=== PATIENT | female | born 1955 | race Caucasian/White ===

== ENCOUNTER → 2017-02-20 | Outpatient (CLI) | payer BC ==
[~2017-02-20] VITALS: Ht 167.6 cm; Wt 122.5 kg
[~2017-02-20] MED LIST: ASPIR 8181 M1 PO; BIOTIN; BIOTIN800 MCG PO; CARDIZEM CD240 M1 PO; CEFTIN 250 MG250 MG PO; CENTRUM SILVER1 EAC4 PO; ELIQUIS5 MG PO; FLECAINIDE ACET50 M1 PO; FLUOXETINE DR90 MG; IRON SUPPLEMEN325 MG PO; IRON325 PO; KLOR-CON 1010 MEQ PO; LASIX 20 MG TAB20 MG PO; LEVOTHYROXINE PO; LISINOPRIL PO; LISINOPRIL5 MG PO; METOPROLOL SUCC50 MG PO; PANTOPRAZOLE SO40 M1 PO; PERCOCET 5-3251 EACH PO; POTASSIUM20 PO; PREDNISONE 5 MG5 M1 PO; PROPAFENONE 15150 MG PO; PROTONIX40 MG PO; PROZAC20 MG PO; TOPROL XL25 MG PO; TYLENOL325 MG PO; VICTOZA0.6 MG/0.1; VITAMIN B-12500 MCG PO; VITAMIN C500 M1 PO; VITAMIN D; VITAMIN D1000 UNI1 PO; ZOFRAN 4 MG ORAL4 MG PO
--- NOTE | ~2017-02-20 | EKG ---
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: Yvonne KRAUSE : 1955 Requested By: Ortiz Santamaria Order Number: [id number] MD: Ortiz Santamaria Measurements Intervals [place] Rate: 45 P: 36 [place]: 184 QRS: 61 QRSD: 105 T: 150 QT: 522 QTc: 452 Interpretive Statements Sinus bradycardia Atrial premature complex Consider left atrial enlargement Abnormal T, consider ischemia, lateral leads No previous ECG available for comparison Electronically Signed On 02-22-2017 22:07:29 CDT by Ortiz Santamaria [email or web address] <ELECTRONICALLY SIGNED> By: Ortiz Santamaria MD 02/22/17 2207 1110 111 Ortiz Santamaria MD /EPI
[2017-02-20 08:25] VITALS: BP 176/81
[2017-02-20 08:47] LABS: HEMOGLOBIN 13.9 gm/dL (12.0-15.0); MCH 29.6 pg (26.0-34.0); MCHC 33.1 g/dL (28.0-37.0); MCV 89.3 fL (80.0-100.0); RBC 4.71 mil/uL (4.20-5.00); RDW 13.9 % (10.5-14.5); WBC 7.3 thou/uL (4.0-11.0)
[2017-02-20 08:57] LABS: CALCIUM 8.8 mg/dL (8.5-10.1); CREATININE 0.8 mg/dL (0.6-1.0); POTASSIUM 3.3 mmol/L (3.5-5.1)
[2017-02-20 09:01] LABS: APTT 25.7 Seconds (24.5-32.8); INR 1.1; PROTIME 11.2 Seconds (9.3-11.4)
== END | disposition home or self-care (01) ==
LOC: CATH 07:57
PROVIDERS: Internal Medicine Cardiovascular Disease
DX: I48.91 Unspecified atrial fibrillation (principal); E03.9 Hypothyroidism, unspecified; I10 Essential (primary) hypertension; K21.9 Gastro-esophageal reflux disease without esophagitis; Z90.49 Acquired absence of other specified parts of digestive tract; Z90.710 Acquired absence of both cervix and uterus; Z98.84 Bariatric surgery status; Z98.890 Other specified postprocedural states; Z87.891 Personal history of nicotine dependence; Z79.899 Other long term (current) drug therapy
CPT/HCPCS: 62110; 62900

== ENCOUNTER → 2017-11-09 | Outpatient (CLI) | payer BC ==
[~2017-11-09] VITALS: Ht 167.6 cm; Wt 117.5 kg
[~2017-11-09] MED LIST changes: +AUGMENTIN 875-1 EACH PO; +FELDENE10 MG PO
--- NOTE | ~2017-11-09 | P ---
[facility] [place] [address] PROCEDURE REPORT Name: ANTHONY DUTTON Room #: REG [facility]#: [id number] Admission: 11/09/17 Attend Phys: Ortiz Santamaria MD Discharge: Date of : 55 Report #: [id number] THIS REPORT FOR: //name// CC: Paulo Santamaria PREOPERATIVE DIAGNOSIS: Atrial fibrillation. POSTOPERATIVE DIAGNOSIS: Atrial fibrillation. DESCRIPTION OF PROCEDURE: The patient underwent informed consent. She was then sedated by the Anesthesiology service and then underwent a successful 200 joule synchronized cardioversion with voodoo of sinus rhythm. CONCLUSIONS: Successful DC cardioversion with voodoo of sinus rhythm. <ELECTRONICALLY SIGNED> By: Ortiz Santamaria MD 11/26/17 1141 1123 1222 Ortiz Santamaria MD /nt
--- NOTE | ~2017-11-09 | EKG ---
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 : 1955 Requested By: Ortiz Santamaria Order Number: [id number] MD: Emilio Longoria Measurements Intervals [place] Rate: 65 P: 14 [place]: 168 QRS: 0 QRSD: 97 T: 66 QT: 437 QTc: 455 Interpretive Statements Sinus rhythm Borderline T wave abnormalities Compared to ECG 02/20/2017 11:10:02 Sinus bradycardia no longer present Atrial premature complex(es) no longer present T-wave abnormality is less pronounced Electronically Signed On 11-10-2017 9:40:47 CDT by Emilio Longoria [email or web address] <ELECTRONICALLY SIGNED> By: Emilio Longoria MD, [facility] 11/10/17 0940 1318 1318 Emilio Longoria MD, [facility] /EPI
[2017-11-09 11:30] VITALS: BP 153/88
[2017-11-09 11:54] LABS: HEMATOCRIT 45.4 % (37.0-47.0); HEMOGLOBIN 15.2 gm/dL (12.0-15.0); MCH 29.5 pg (26.0-34.0); MCHC 33.4 g/dL (28.0-37.0); MCV 88.2 fL (80.0-100.0); RBC 5.15 mil/uL (4.20-5.00); RDW 14.8 % (10.5-14.5); WBC 7.5 thou/uL (4.0-11.0)
[2017-11-09 12:02] LABS: CALCIUM 9.2 mg/dL (8.5-10.1); CREATININE 0.7 mg/dL (0.6-1.0)
[2017-11-09 12:08] LABS: ALBUMIN 3.9 g/dL (3.4-5.0); PROTIME 10.6 Seconds (9.3-11.4); TOTAL BILIRUBIN 1.1 mg/dL (<0.1-1.0); TOTAL PROTEIN 6.5 g/dL (6.4-8.2)
== END | disposition home or self-care (01) ==
LOC: CATH 10:00
PROVIDERS: Internal Medicine Cardiovascular Disease
DX: I48.91 Unspecified atrial fibrillation (principal); E03.9 Hypothyroidism, unspecified; I10 Essential (primary) hypertension; E66.09 Other obesity due to excess calories; Z87.891 Personal history of nicotine dependence; Z98.890 Other specified postprocedural states; Z90.49 Acquired absence of other specified parts of digestive tract; Z79.899 Other long term (current) drug therapy; Z90.710 Acquired absence of both cervix and uterus; Z79.01 Long term (current) use of anticoagulants
CPT/HCPCS: 62110; 62900

== ENCOUNTER → 2017-11-30 | Outpatient (CLI) | payer BC ==
[2017-11-30 07:39] LABS: HEMATOCRIT 44.5 % (37.0-47.0); HEMOGLOBIN 14.8 gm/dL (12.0-15.0); MCH 29.4 pg (26.0-34.0); MCHC 33.3 g/dL (28.0-37.0); MCV 88.5 fL (80.0-100.0); RBC 5.03 mil/uL (4.20-5.00); RDW 14.6 % (10.5-14.5); WBC 5.1 thou/uL (4.0-11.0)
[2017-11-30 07:49] LABS: ALBUMIN 3.8 g/dL (3.4-5.0); CALCIUM 9.2 mg/dL (8.5-10.1); CREATININE 0.8 mg/dL (0.6-1.0); POTASSIUM 3.4 mmol/L (3.5-5.1); TOTAL PROTEIN 6.3 g/dL (6.4-8.2)
== END ==
LOC: CAT 06:15
PROVIDERS: Internal Medicine Cardiovascular Disease
DX: M47.894 Other spondylosis, thoracic region (principal); K44.9 Diaphragmatic hernia without obstruction or gangrene; Z90.49 Acquired absence of other specified parts of digestive tract

== ENCOUNTER → 2017-12-31 | Outpatient (CLI) | payer BC ==
[~2017-12-31] VITALS: Ht 170.2 cm; Wt 112.9 kg
--- NOTE | ~2017-12-31 | EKG ---
[address] [address] ELECTROCARDIOGRAM REPORT Name: ANTHONY DUTTON Room #: REG [facility]#: [id number] Admission: 12/31/17 Attend Phys: Ortiz Santamaria MD Discharge: Date of : 55 Report #: [id number] THIS REPORT FOR: //name// [facility] Test Date: 2017-12-31 Test Time: 13:25:03 Pat Name: ANTHONY DUTTON Department: Room: Gender: F Ribbon Tier: LISBET : 1955 Requested By: Ortiz Santamaria Order Number: [id number] MD: Ortiz Santamaria Measurements Intervals [place] Rate: 67 P: 15 [place]: 160 QRS: -14 QRSD: 104 T: 87 QT: 435 QTc: 460 Interpretive Statements Sinus rhythm Abnormal R-wave progression, late transition Probable left ventricular hypertrophy Compared to ECG 12/10/2017 14:57:16 T-wave abnormality no longer present Electronically Signed On 12-31-2017 16:18:20 CDT by Ortiz Santamaria [email or web address] <ELECTRONICALLY SIGNED> By: Ortiz Santamaria MD 12/31/17 1618 1325 1325 Ortiz Santamaria MD /EPI
--- NOTE | ~2017-12-31 | P ---
[facility] [place] [address] PROCEDURE REPORT Name: ANTHONY DUTTON Room #: REG [facility]#: [id number] Admission: 12/31/17 Attend Phys: Ortiz Santamaria MD Discharge: Date of : 55 Report #: [id number] THIS REPORT FOR: //name// CC: Paulo Santamaria PROCEDURE: Cardioversion. PREOPERATIVE DIAGNOSIS: Atrial fibrillation. POSTOPERATIVE DIAGNOSIS: Atrial fibrillation. DESCRIPTION OF PROCEDURE: The patient underwent informed consent. The patient was then sedated by the Anesthesiology Service. Once sedated, she underwent a synchronized 200-joule cardioversion with druze of sinus rhythm. There were no procedural complications. CONCLUSIONS: Successful DC cardioversion with druze of sinus rhythm. By: 1245 0019 Ortiz Santamaria MD /nt
[2017-12-31 10:34] LABS: HEMATOCRIT 46.4 % (37.0-47.0); HEMOGLOBIN 15.5 gm/dL (12.0-15.0); MCH 29.5 pg (26.0-34.0); MCHC 33.4 g/dL (28.0-37.0); MCV 88.2 fL (80.0-100.0); RBC 5.26 mil/uL (4.20-5.00); RDW 14.8 % (10.5-14.5); WBC 5.8 thou/uL (4.0-11.0)
[2017-12-31 10:42] LABS: CALCIUM 9.2 mg/dL (8.5-10.1); CREATININE 0.7 mg/dL (0.6-1.0); POTASSIUM 3.7 mmol/L (3.5-5.1)
[2017-12-31 10:45] VITALS: BP 132/97
[2017-12-31 10:48] LABS: ALBUMIN 4.1 g/dL (3.4-5.0); TOTAL PROTEIN 6.9 g/dL (6.4-8.2)
[2017-12-31 11:03] LABS: APTT 28.1 Seconds (24.5-32.8); PROTIME 10.7 Seconds (9.3-11.4)
== END | disposition home or self-care (01) ==
LOC: CV 10:01
PROVIDERS: Internal Medicine Cardiovascular Disease
DX: I48.91 Unspecified atrial fibrillation (principal); I10 Essential (primary) hypertension; E03.9 Hypothyroidism, unspecified; Z90.710 Acquired absence of both cervix and uterus; Z90.49 Acquired absence of other specified parts of digestive tract; Z98.890 Other specified postprocedural states; Z79.899 Other long term (current) drug therapy; Z79.01 Long term (current) use of anticoagulants; Z98.84 Bariatric surgery status
CPT/HCPCS: 62110; 62900

== ENCOUNTER → 2018-07-14 | Outpatient (CLI) | payer BC ==
[~2018-07-14] VITALS: Ht 170.2 cm; Wt 114.8 kg
--- NOTE | ~2018-07-14 | P ---
[facility] [place] [address] PROCEDURE REPORT Name: ANTHONY DUTTON Room #: REG [facility]#: [id number] Admission: 07/14/18 Attend Phys: Ortiz Santamaria MD Discharge: Date of : 55 Report #: [id number] THIS REPORT FOR: //name// CC: Paulo Santamaria PROCEDURE: Cardioversion. PREOPERATIVE DIAGNOSIS: Atrial fibrillation. POSTOPERATIVE DIAGNOSIS: Atrial fibrillation. DESCRIPTION OF PROCEDURE: The patient underwent informed consent. She was then sedated by the Anesthesiology Service. Once sedated, she underwent a successful 200 joules synchronized cardioversion with adventism of sinus rhythm. There were no procedural complications. CONCLUSIONS: Successful DC cardioversion with adventism of sinus rhythm. <ELECTRONICALLY SIGNED> By: Ortiz Santamaria MD 07/15/18 0831 1257 1342 Ortiz Santamaria MD /nt
[2018-07-14 07:11] VITALS: BP 120/99
[2018-07-14 07:39] LABS: ABSOLUTE NEUTROPHILS 2.6 thou/uL (1.4-8.2); BASOPHILS 1.1 % (0.0-2.0); HEMATOCRIT 45.2 % (37.0-47.0); HEMOGLOBIN 14.6 gm/dL (12.0-15.0); LYMPHOCYTES 31.1 % (24.0-44.0); MCH 28.4 pg (26.0-34.0); MCHC 32.4 g/dL (28.0-37.0); MCV 87.6 fL (80.0-100.0); MONOCYTES 8.7 % (1.0-8.0); PLATELET COUNT 214 thou/uL (150-400); POLYS 57.1 % (36.0-66.0); RBC 5.15 mil/uL (4.20-5.00); RDW 14.3 % (10.5-14.5); WBC 4.6 thou/uL (4.0-11.0)
[2018-07-14 07:45] LABS: CALCIUM 9.2 mg/dL (8.5-10.1); CREATININE 0.7 mg/dL (0.6-1.0); POTASSIUM 3.4 mmol/L (3.5-5.1)
[2018-07-14 07:51] LABS: ALBUMIN 3.7 g/dL (3.4-5.0); TOTAL BILIRUBIN 0.9 mg/dL (<0.1-1.0); TOTAL PROTEIN 6.6 g/dL (6.4-8.2)
[2018-07-14 08:21] LABS: APTT 30.6 Seconds (24.5-32.8); PROTIME 10.7 Seconds (9.3-11.4)
== END | disposition home or self-care (01) ==
LOC: CATH 06:20
PROVIDERS: Internal Medicine Cardiovascular Disease
DX: I48.91 Unspecified atrial fibrillation (principal); J01.90 Acute sinusitis, unspecified; E03.9 Hypothyroidism, unspecified; I10 Essential (primary) hypertension; E66.9 Obesity, unspecified; Z79.899 Other long term (current) drug therapy; Z90.710 Acquired absence of both cervix and uterus; Z98.84 Bariatric surgery status; Z90.49 Acquired absence of other specified parts of digestive tract; Z90.89 Acquired absence of other organs; Z98.890 Other specified postprocedural states; Z87.891 Personal history of nicotine dependence

== ENCOUNTER 2018-11-05 06:49 | Observation (INO) | payer BC ==
[~2018-11-05] VITALS: Ht 170.2 cm; Wt 120.5 kg
[2018-11-05] VITALS (14 sets, daily range): BP systolic 126–176; BP diastolic 64–91
--- NOTE | ~2018-11-05 | P ---
[facility] [place] [address] PROCEDURE REPORT Name: ANTHONY DUTTON Room #: 213-P [facility]#: [id number] Admission: 11/05/18 ������������������ Attend Phys: Ortiz Santamaria MD Discharge: ������������������ Date of : 55 Report #: [id number] THIS REPORT FOR: //name// CC: Paulo Santamaria DATE OF SERVICE: 11/05/2018 PREOPERATIVE DIAGNOSIS: Atrial fibrillation. POSTOPERATIVE DIAGNOSIS: Atrial fibrillation. HISTORY: The patient is a 63-year-old female with a history of atrial fibrillation status post prior ablation with clinical recurrence here for a repeat ablation. PROCEDURES PERFORMED: 1. AFib ablation, CPT code 28764. 2. 3D mapping, CPT code 34879. 3. Intracardiac echo, CPT code 58707. 4. Focal ablation of the left atrial roof, CPT code 39134. 5. Secondary pathway ablation for atrial flutter, CPT code 00386. ANESTHESIA: The patient underwent general anesthesia with no anesthesia related complications. DESCRIPTION OF PROCEDURE: The patient was brought to the EP laboratory in fasting and sedated state, prepped and draped in a sterile fashion and I injected lidocaine to the bilateral groins and obtained access to the bilateral femoral veins placing a two 8-Salvadorean short sheaths in the right femoral vein and a 7 and 9-Salvadorean short sheath in the left femoral vein using the modified Seldinger technique. Next, a Decapolar catheter was placed in the coronary sinus and it remained in position throughout the procedure. An ice catheter was placed in the right atrium and I created a detailed 3D geometry of the left atrium with specific emphasis of the left atrial appendage, the two left and two right pulmonary veins. This was merged with a cardiac CT scan. Next, the patient was systemically heparinized and two transseptals were performed using SL1 sheaths and the [place] needle and both sheaths were placed in the left atrium. Next, a Lasso catheter was utilized to create 3D geometry of the left atrium and a SmartTouch ThermoCool was placed in the left atrium as well for ablation. At baseline, the patient was in sinus rhythm with a sinus cycle length of 1200 milliseconds, ID interval 190 milliseconds, QRS duration 95 milliseconds, and a QT interval 465 milliseconds. Next, the voltage map demonstrated that the left superior and right superior pulmonary veins were isolated. There was slight reconnection of the left inferior pulmonary vein and slight reconnection of the right inferior pulmonary vein. Therefore, I started [facility] [address] [place] [address] PROCEDURE REPORT Name: ANTHONY DUTTON Room #: 213-P [facility]#: [id number] Admission: 11/05/18 ������������������ Attend Phys: Ortiz Santamaria MD Discharge: ������������������ Date of : 55 Report #: [id number] ablating and I performed a wide circumferential ablation of the left veins. This was performed at 35 brand. This resulted in re-isolation of the left inferior pulmonary vein and widening of the area of isolation of the left-sided vessels. Next, I turned my attention to the right inferior pulmonary vein and there was some reconnection at the inferior aspect of the vein at around 6 o'clock. I performed ablation from 3 o'clock to about 9 o'clock and then there was isolation of this vein as well. Next, I created a repeat voltage map and there was evidence of isolation of all the veins. There were significant fractionated atrial signals along the posterior wall and along the roof region. Therefore, I created a roofline along the posterior aspect of the left atrium. A repeat voltage map demonstrated that we had essentially isolated this area of the roof in much of the posterior segment of the left atrium. I repeated a voltage map and essentially the majority of the left atrium was now isolated except for a small strip along the posterior wall of the posterior atrium. Next, I pulled my ablation catheter and sheaths to the right atrium and I performed ablation along the cavotricuspid isthmus at 6 o'clock. Pre-ablation, the transisthmus conduction time was 35 milliseconds. Using a SignicastTouch ThermoCool ablation, two lines were created and there was still evidence of conduction across the line, I did exchange for a ramp sheath and performed a more septal line. Post-ablation, transisthmus conduction time was now 80 milliseconds. As such, using intracardiac ultrasound, I verified that there was no pericardial effusion and as such, the procedure was concluded. The patient remained in sinus rhythm with a sinus cycle length of 799 milliseconds, ID interval 155 milliseconds, QRS duration 93 milliseconds, QT interval 495 milliseconds. As such, the patient received systemic protamine and once the ACT was within acceptable range, all sheaths were pulled and hemostasis was obtained. The patient awoke neurologically and hemodynamically intact with no complications and no significant bleeding. CONCLUSIONS: 1. Successful AFib ablation with re-isolation of the right inferior pulmonary vein and the left inferior pulmonary vein. 2. Wide circumferential ablation of the left-sided veins. 3. Creation of a left atrial roofline. 4. Successful ablation of the cavotricuspid isthmus. ��������������������������������������������� ���������������������������������������� By: ��������������������������������������������� 1211 0327 Ortiz Santamaria MD /nt
[2018-11-05 07:34] LABS: ABSOLUTE NEUTROPHILS 3.1 thou/uL (1.4-8.2); BASOPHILS 1.4 % (0.0-2.0); EOSINOPHILS 2.6 % (0.0-3.0); HEMATOCRIT 42.9 % (37.0-47.0); HEMOGLOBIN 14.3 gm/dL (12.0-15.0); LYMPHOCYTES 24.5 % (24.0-44.0); MCHC 33.3 g/dL (28.0-37.0); MONOCYTES 7.6 % (1.0-8.0); PLATELET COUNT 220 thou/uL (150-400); POLYS 63.9 % (36.0-66.0); RBC 4.92 mil/uL (4.20-5.00); RDW 15.3 % (10.5-14.5); WBC 4.8 thou/uL (4.0-11.0)
[2018-11-05 07:37] LABS: CALCIUM 9.3 mg/dL (8.5-10.1); CREATININE 0.6 mg/dL (0.6-1.0); POTASSIUM 3.8 mmol/L (3.5-5.1)
[2018-11-05 07:43] LABS: ALBUMIN 4.1 g/dL (3.4-5.0); TOTAL BILIRUBIN 1.3 mg/dL (<0.1-1.0); TOTAL PROTEIN 6.8 g/dL (6.4-8.2)
[2018-11-05 07:45] LABS: APTT 27.4 Seconds (24.5-32.8); PROTIME 10.7 Seconds (9.3-11.4)
--- NOTE | 2018-11-05 14:55 | NUR ---
ASSUMED CARE AT 1400, SHIFT ASSESSMENT AND ADMISSION DONE. VSS. BILATERAL GROIN SITES ARE SOFT ON PALPATION, NO BLEEDING NOTED AT THE STIES. PATIENT DROWSY, A&O*4. REPORTED PAIN TO RIGHT HAND AND LOWER BACK, PRN PAIN MED GIVEN. SALDANA IN PLACE, PRODUCING LIGHT YELLOW URINE. VS MONITORED PER PROTOCOL. WILL CONTINUE TO ASSESS AND ASSIST WITH ADLs NEEDED.
--- NOTE | 2018-11-05 17:35 | NUR ---
VS HAVE BEEN OBTANIED Q15 MIN FOR FIRST HOUR AND Q1H FOR NEXT 1 HOUR, VSS. BOTH GROIN SITES DOES NOT SHOW ANY SIGNS OF HEMATOMA, SWELLING. SALDANA IN PLACE. RESTING IN BED. WILL CONTINUE TO ASSESS AND ASSIST WITH ADLs NEEDED.
--- NOTE | 2018-11-05 18:46 | NUR ---
AT 1815 SITES WERE CHECKED, DID NOT SEE ANY HEMATOMA, ON PALPATION SITE IS SOFT. SALDANA WAS DISCONTINUED, VSS. PATIENT WAS ABLE TO SIT AT THE EDGE OF THE BED AND THEN TRANSFER TO THE CHAIR. DENIES ANY PAIN, WILL CONTINUE TO ASSESS AND ASSIST WITH ADLs NEEDED.
[2018-11-06 00:25] VITALS: BP 126/56
--- NOTE | 2018-11-06 05:48 | NUR ---
ASSUMED PT CARE AT 1900. PT OFF BEDREST, A/OX4, FAMILY AT BEDSIDE. VITAL SIGNS STABLE, ASSESSMENT CHARTED. GROIN SITES CLEAN, DRY, INTACT. NO HEMATOMAS. NO COMPLAINTS OF CHEST PAIN. BACK PAIN ADEQAUTELY MANAGED WITH PAIN MEDICATION. PT ABLE TO AMBULATE TO THE BATHROOM STANDBY ASSIST TO INDEPENDENT. PT RESTED WELL THROUGH THE NIGHT. PROGRESSING TOWARD PLAN OF CARE. WILL CONTINUE TO MONITOR.
[2018-11-06 05:52] VITALS: BP 111/56
[2018-11-06 08:00] VITALS: BP 139/57
[2018-11-06 10:45] VITALS: BP 139/57
--- NOTE | 2018-11-06 12:40 | NUR ---
PATIENT ALERT AND ORIENTED X4, PAIN CONTROLLED WITH MEDICATION. 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 ON ROOM AIR. TOLERATING DIET. UP INDEPENDENTLY. DISCHARGE INSTRUCTIONS AND FOLLOW UP APPOINTMENT DISCUSSED. PATIENT VERBALIZED UNDERSTANDING. IV REMOVED. NO SIGNS OF ACUTE DISTRESS NOTED AT THIS TIME. PATIENT TRANSFERRED TO CAR BY STAFF.
[2018-11-06 12:43] VITALS: BP 139/57
== END 2018-11-06 12:44 | disposition home or self-care (01) ==
LOC: CATH 06:49 → 2N 13:35 → CATH 15:00 → 2N 11-06 12:44
PROVIDERS: ADMIT Internal Medicine Cardiovascular Disease
DX: I48.91 Unspecified atrial fibrillation (principal); I10 Essential (primary) hypertension; I49.5 Sick sinus syndrome; Z79.899 Other long term (current) drug therapy
CPT/HCPCS: 62110; 62900; 65020; 70005

== ENCOUNTER → 2019-06-09 | Outpatient (CLI) | payer BC ==
[~2019-06-09] VITALS: Ht 170.2 cm; Wt 117.9 kg
[~2019-06-09] MED LIST changes: +LISINOPRIL2.5 MG PO; +OXYBUTYNIN 5 MG5 M2 PO; +PREDNISONE 1 MG1 M1 PO
[2019-06-09 11:09] VITALS: BP 161/99
[2019-06-09 11:46] LABS: BASOPHILS 0.8 % (0.0-2.0); EOSINOPHILS 0.4 % (0.0-3.0); HEMATOCRIT 42.3 % (37.0-47.0); HEMOGLOBIN 14.1 gm/dL (12.0-15.0); LYMPHOCYTES 13.2 % (24.0-44.0); MCH 29.7 pg (26.0-34.0); MCHC 33.3 g/dL (28.0-37.0); MCV 89.1 fL (80.0-100.0); MONOCYTES 3.6 % (1.0-8.0); PLATELET COUNT 226 thou/uL (150-400); RBC 4.74 mil/uL (4.20-5.00); RDW 14.7 % (10.5-14.5)
[2019-06-09 11:56] LABS: CALCIUM 8.9 mg/dL (8.5-10.1); CREATININE 0.7 mg/dL (0.6-1.0)
[2019-06-09 11:58] LABS: APTT 29.5 Seconds (24.5-32.8); PROTIME 10.9 Seconds (9.3-11.4)
[2019-06-09 12:01] LABS: ALBUMIN 3.8 g/dL (3.4-5.0); TOTAL PROTEIN 6.4 g/dL (6.4-8.2)
--- NOTE | 2019-06-16 12:27 | P ---
[facility] [place] [address] PROCEDURE REPORT Name: ANTHONY DUTTON Room #: REG [facility]#: [id number] Admission: 06/09/19 Attend Phys: Ortiz Santamaria MD Discharge: Date of : 55 Report #: [id number] THIS REPORT FOR: //name// CC: Paulo Santamaria PREOPERATIVE DIAGNOSIS: Atrial fibrillation. POSTOPERATIVE DIAGNOSIS: Atrial fibrillation. DESCRIPTION OF PROCEDURE: The patient underwent informed consent. She was prepped in a standard fashion. She was sedated by the Anesthesiology service. Once sedated, she underwent a 200 joule synchronized cardioversion with baptism of sinus rhythm. There were no procedure related complications. CONCLUSIONS: Successful DC cardioversion with baptism of sinus rhythm. <ELECTRONICALLY SIGNED> By: Ortiz Santamaria MD 06/16/19 1227 0747 1833 Ortiz Santamaria MD /nt
== END | disposition home or self-care (01) ==
LOC: CATH 10:15
PROVIDERS: Internal Medicine Cardiovascular Disease
DX: I48.91 Unspecified atrial fibrillation (principal); I10 Essential (primary) hypertension; E03.9 Hypothyroidism, unspecified; Z90.710 Acquired absence of both cervix and uterus; Z90.49 Acquired absence of other specified parts of digestive tract; Z98.84 Bariatric surgery status; Z98.890 Other specified postprocedural states; Z79.01 Long term (current) use of anticoagulants; Z79.899 Other long term (current) drug therapy; Z87.891 Personal history of nicotine dependence
CPT/HCPCS: 62110; 62900

== ENCOUNTER → 2019-10-12 | Outpatient (CLI) | payer BC | LOC: RAD 16:08 | DX: R06.00 Dyspnea, unspecified (principal); R06.02 Shortness of breath ==

== ENCOUNTER → 2019-10-19 | Outpatient (CLI) | payer BC ==
[~2019-10-19] VITALS: Ht 170.2 cm; Wt 121.6 kg
[~2019-10-19] MED LIST changes: +PACERONE200 MG PO; +REVIA 50 MG TAB50 M1; +WELLBUTRIN 75 M75 M1 PO
[2019-10-19 09:33] VITALS: BP 149/81
[2019-10-19 09:44] LABS: ABSOLUTE NEUTROPHILS 2.6 thou/uL (1.4-8.2); BASOPHILS 1.1 % (0.0-2.0); EOSINOPHILS 1.8 % (0.0-3.0); HEMATOCRIT 42.4 % (37.0-47.0); HEMOGLOBIN 13.7 gm/dL (12.0-15.0); MCH 28.1 pg (26.0-34.0); MCHC 32.2 g/dL (28.0-37.0); MCV 87.3 fL (80.0-100.0); MONOCYTES 8.8 % (1.0-8.0); PLATELET COUNT 227 thou/uL (150-400); POLYS 63.3 % (36.0-66.0); RBC 4.86 mil/uL (4.20-5.00); RDW 14.9 % (10.5-14.5); WBC 4.1 thou/uL (4.0-11.0)
[2019-10-19 09:51] LABS: CALCIUM 8.6 mg/dL (8.5-10.1); CREATININE 0.7 mg/dL (0.6-1.0); POTASSIUM 3.5 mmol/L (3.5-5.1)
[2019-10-19 09:53] LABS: APTT 32.4 Seconds (24.5-32.8); INR 1.1; PROTIME 10.9 Seconds (9.3-11.4)
[2019-10-19 09:56] LABS: ALBUMIN 3.6 g/dL (3.4-5.0); TOTAL BILIRUBIN 1.2 mg/dL (<0.1-1.0); TOTAL PROTEIN 6.2 g/dL (6.4-8.2)
== END | disposition home or self-care (01) ==
LOC: CATH 08:50
PROVIDERS: Internal Medicine Cardiovascular Disease
DX: I48.0 Paroxysmal atrial fibrillation (principal); I10 Essential (primary) hypertension; E03.9 Hypothyroidism, unspecified; E66.01 Morbid (severe) obesity due to excess calories; Z79.01 Long term (current) use of anticoagulants; Z98.890 Other specified postprocedural states; Z79.899 Other long term (current) drug therapy; Z98.84 Bariatric surgery status; Z90.710 Acquired absence of both cervix and uterus; Z90.49 Acquired absence of other specified parts of digestive tract; Z87.891 Personal history of nicotine dependence